=== PATIENT | female | born 1945 | race Two or more races ===

== ENCOUNTER 2020-11-19 11:30 | Inpatient (IN) | payer OTHER ==
[~2020-11-19] VITALS: Ht 154.9 cm; Wt 58.5 kg
[2020-11-19] MEDS ORDERED: SIMVASTATIN (11:32)
[2020-11-19] MEDS ORDERED: ACETAMINOPHEN 325MG TABLET PO STA (11:49)
[2020-11-19] MEDS ORDERED: AZITHROMYCIN 500 MG in DEXT 5% WATER 250 ML IV ONE (12:00)
[2020-11-19] MEDS ORDERED: CEFTRIAXONE 1 G PREMIX 50 ML IV ONE (12:00)
[2020-11-19 12:19] LABS: BASOPHILS % 0.2 % (0.0-2.0); EOSINOPHILS % 0.1 % (0.0-5.0); HEMATOCRIT. 34.2 % (36.0-48.0); HEMOGLOBIN. 11.9 g/dL (12.0-16.0); LYMPHOCYTES % 14.8 % (20.0-50.0); MEAN CORPUSCULAR HEMOGLOBIN 30.4 pg (28.0-32.0); MEAN CORPUSCULAR VOLUME 87.6 fL (81.0-99.0); MEAN PLATELET VOLUME 9.8 fl (7.4-10.4); MONOCYTES % 5.5 % (2.0-8.0); NEUTROPHILS % 79.4 % (40.0-76.0); PLATELET 107 x1000/uL (130-400); RED BLOOD CELL COUNT 3.91 mill/uL (4.2-5.4); RED CELL DISTRIBUTION WIDTH 13.5 % (11.6-14.6)
[2020-11-19 12:34] LABS: CHLORIDE 105 mEq/L (98-107)
[2020-11-19 12:36] LABS: D-DIMER 0.62 mg/L FEU (<0.50); PROTHROMBIN TIME 10.6 sec (9.6-11.0)
[2020-11-19 12:43] LABS: CREATINE KINASE 61 IU/L (26-192)
[2020-11-19] MEDS ORDERED: GUAIFENESIN 200MG/10ML SUGAR FREE UDC PO PRN (13:30)
[2020-11-19] MEDS ORDERED: DOCUSATE SODIUM 100MG CAPSULE PO PRN (13:30)
[2020-11-19] MEDS ORDERED: ONDANSETRON HCL 4MG/2ML INJ IV PRN (13:30)
[2020-11-19] MEDS ORDERED: ACETAMINOPHEN 325MG TABLET PO PRN (13:30)
[2020-11-19] MEDS ORDERED: HYDROCODONE/ACETAMINOPHEN 5/325MG TABLET PO PRN (13:30)
[2020-11-19] MEDS ORDERED: MAGNESIUM/ALUMINUM HYDROXIDE/SIMETHICONE 30ML UDC PO PRN (13:30)
[2020-11-19] MEDS ORDERED: CLONIDINE 0.1MG TABLET PO PRN (13:30)
[2020-11-19] MEDS ORDERED: ENOXAPARIN 40MG/0.4ML SYR SUBCUT SCH (14:00)
[2020-11-19] MEDS: DEXAMETHASONE 10 MG/ML VIAL IV SCH (15:30)
[2020-11-19 19:25] LABS: BG BASE EXCESS 2.2 mmol/L (-2.0-2.0); BG CARBOXYHEMOGLOBIN 0.3 % (0.5-1.5); BG DEOXYHEMOGLOBIN 1.9 % (0.0-5.0); BG FRACTION INSPIRED OXYGEN 28; BG HCO3 ACT 26.1 mmol/L (22.0-26.0); BG METHEMOGLOBIN 0.3 % (0.0-1.5); BG OXYGEN SATURATION 98.1 % (92.0-98.5); BG OXYHEMOGLOBIN 97.5 % (94.0-97.0); BG PH 7.454 (7.350-7.450); BG PO2 113.7 mmHg (75.0-100.0); BG SAMPLE SITE RIGHT RADIAL; BG TOTAL HEMOGLOBIN 12.9 g/dL (12.0-18.0); BG VENT MODE NASAL CANNULA
[2020-11-20 05:58] LABS: BASOPHILS % 0.2 % (0.0-2.0); HEMATOCRIT. 35.2 % (36.0-48.0); HEMOGLOBIN. 12.2 g/dL (12.0-16.0); LYMPHOCYTES % 16.1 % (20.0-50.0); MEAN CORPUSCULAR HEMOGLOBIN 30.6 pg (28.0-32.0); MEAN CORPUSCULAR VOLUME 87.8 fL (81.0-99.0); MEAN PLATELET VOLUME 10.3 fl (7.4-10.4); NEUTROPHILS % 79.7 % (40.0-76.0); PLATELET 116 x1000/uL (130-400); RED BLOOD CELL COUNT 4.01 mill/uL (4.2-5.4); RED CELL DISTRIBUTION WIDTH 13.2 % (11.6-14.6)
[2020-11-20 06:06] LABS: CHLORIDE 108 mEq/L (98-107)
[2020-11-20] MEDS: ENOXAPARIN 40MG/0.4ML SYR SUBCUT SCH (08:53)
[2020-11-20] MEDS: DEXAMETHASONE 10 MG/ML VIAL IV SCH (08:53)
[2020-11-20] MEDS ORDERED: CEFTRIAXONE 1 G PREMIX 50 ML IV SCH (12:00)
[2020-11-20] MEDS ORDERED: AZITHROMYCIN 500 MG in DEXT 5% WATER 250 ML IV SCH (12:00)
[2020-11-20 16:35] VITALS: BP_SYST 107; BP_SYST 150; BP_DIAS 62
[2020-11-20] MEDS ORDERED: ATOR20TA PO ×2 (18:03)
[2020-11-20 20:00] VITALS: BP 116/71
[2020-11-20] MEDS: ATORVASTATIN CALCIUM 20MG TABLET PO SCH (21:21)
[2020-11-21] VITALS: BP 119/73
[2020-11-21 04:00] VITALS: BP 121/69
[2020-11-21 08:00] VITALS: BP 104/56
[2020-11-21] MEDS: DEXAMETHASONE 10 MG/ML VIAL IV SCH (08:31)
[2020-11-21] MEDS: ENOXAPARIN 40MG/0.4ML SYR SUBCUT SCH (08:32)
[2020-11-21] MEDS: CEFTRIAXONE 1,000 MG in DEXTROSE 5% WATER 50 ML IV SCH (10:58)
[2020-11-21] MEDS: AZITHROMYCIN 500 MG in DEXT 5% WATER 250 ML IV SCH (11:57)
[2020-11-21 12:00] VITALS: BP 99/56
[2020-11-21 16:00] VITALS: BP 135/73
[2020-11-21 20:00] VITALS: BP 110/76
[2020-11-21] MEDS: ATORVASTATIN CALCIUM 20MG TABLET PO SCH (22:09)
[2020-11-22] VITALS: BP 110/66
[2020-11-22 04:00] VITALS: BP 108/50
[2020-11-22 08:00] VITALS: BP 101/54
[2020-11-22] MEDS: ENOXAPARIN 40MG/0.4ML SYR SUBCUT SCH (08:37)
[2020-11-22] MEDS: DEXAMETHASONE 10 MG/ML VIAL IV SCH (08:37)
[2020-11-22] MEDS: CEFTRIAXONE 1,000 MG in DEXTROSE 5% WATER 50 ML IV SCH (11:41)
[2020-11-22] MEDS: AZITHROMYCIN 500 MG in DEXT 5% WATER 250 ML IV SCH (11:42)
[2020-11-22 12:00] VITALS: BP 90/44
[2020-11-22 16:00] VITALS: BP 103/59
[2020-11-22 16:43] VITALS: BP 103/59
== END 2020-11-22 17:30 | disposition home or self-care (01) | DRG 871 ==
LOC: ER 11:30 → MICUSO 13:19 → 7EST 11-20 16:11
PROVIDERS: ADMIT Hospitalist; ATTEND Hospitalist
DX: A41.89 Other specified sepsis (principal); U07.1 COVID-19; J96.01 Acute respiratory failure with hypoxia; J12.89 Other viral pneumonia; D63.8 Anemia in other chronic diseases classified elsewhere; E78.5 Hyperlipidemia, unspecified; I10 Essential (primary) hypertension; E78.00 Pure hypercholesterolemia, unspecified; Z86.19 Personal history of other infectious and parasitic diseases; Z79.899 Other long term (current) drug therapy
CPT/HCPCS: 36415; 36600; 71045; 80053; 82375; 82550; 82728; 82805; 83605; 83615; 84145; 84484; 85025; 85379; 85384; 86140; 93005; 93970; 99291; J0456; J0696; J1100; J1650; J7060; U0003